=== PATIENT | female | born 1990 | race Caucasian/White ===

== ENCOUNTER → 2023-12-02 10:45 | Outpatient (REF) | payer BC, SELFPAY | LOC: RAD 10:45 | PROVIDERS: ATTENDING PHYSICIAN Obstetrics & Gynecology; FAMILY PHYSICIAN Internal Medicine | DX: Z31.41 Encounter for fertility testing (principal) | CPT/HCPCS: 58340; 74740 ==

== ENCOUNTER 2025-05-24 15:33 | Emergency (ER) | payer BC, SELFPAY ==
[2025-05-24] VITALS (13 sets, daily range): BP systolic 95–127; BP diastolic 63–81; BMI 20.5
[2025-05-24 16:01] LABS: Hematocrit 35.2 % (37.0-47.0); Hemoglobin 11.8 g/dL (12.0-16.0); Mean Corp Hgb Conc. 33.5 g/dL (33.0-37.0); Mean Corpuscular Volume 84.0 fL (81.0-99.0); Nucleated Red Blood Cells % 0 %; Platelet Count 225 10^3/uL (130-400); Red Cell Dist. Width 12.5 % (11.5-14.5)
[2025-05-24 16:17] LABS: ALT (SGPT) 14 U/L (0-35); AST (SGOT) 19 U/L (14-36); Albumin 4.3 g/dl (3.5-5.0); Alkaline Phosphatase 72 U/L (38-126); Blood Urea Nitrogen 8 mg/dl (7-17); Calcium 8.7 mg/dl (8.4-10.2); Carbon Dioxide 25 mmol/L (22-30); Chloride 107 mmol/L (98-107); Glucose 127 mg/dl (70-99); Potassium 3.6 mmol/L (3.5-5.1); Sodium 137 mmol/L (135-145); Total Protein 6.7 g/dl (6.3-8.2); eGFR > 60.00
[2025-05-24] MEDS: MORPHINE SULFATE 4 MG IV (16:36)
[2025-05-24] MEDS: NSS 1000 IV (16:37)
[2025-05-24] MEDS: TRANEXAMIC ACID 100 IV ×2 (16:39→21:09)
--- NOTE | 2025-05-24 16:52 | ED.GENMED ---
History of Present Illness
<Latrell Jane PA-C - Last Filed: 05/26/25 06:25>
General
Chief Complaint: Vaginal Bleeding
Time Seen by Provider: 05/24/25 16:02
History of Present Illness
History of Present Illness:
34-year-old female, , presents to the emergency department for evaluation heavy vaginal bleeding. She is approximately 5 weeks status post delivery at [facility], due to breech positioning. Review of
records on the patient's phone via c-crowd there did not appear to be any complications. She has had consistent bleeding since delivery, estimates 1 pad per 24 hours however over the past day the bleeding increased and today she had
increased abdominal cramping and heavy vaginal bleeding. For the past 30 minutes to 1 hour she has had pooling of blood in her underwear. Denies any dizziness or lightheadedness. She is not on anticoagulants or antiplatelets.
Past History
<Latrell Jane PA-C - Last Filed: 05/26/25 06:25>
Past History
ED Past Medical History: None
ED Past Surgical History: None
Review of Systems
<Latrell Jane PA-C - Last Filed: 05/26/25 06:25>
Review of Systems
Allergies reviewed?: Yes
All Other Systems: ROS reviewed and negative except as documented in HPI and ROS
Phy Exam
<Latrell Jane PA-C - Last Filed: 05/26/25 06:25>
Physical Exam
Physical Exam:
GEN: Well appearing, NAD, WDWN
HEENT: Oral mucosa moist, no scleral icterus
Cardiac: Mildly tachycardic, occasional irregularity
Lung: No respiratory distress, no tachypnea
Abdomen: Soft, no rigidity
: Brisk vaginal bleeding with copious clots, blood fills vaginal vault rapidly after clearing
MSK: No gross deformity or injuries
Skin: Good color, no pallor or jaundice, no rashes
Neuro: AO x3, moves all extremities freely
Psych: Calm, cooperative
Course
<Latrell Jane PA-C - Last Filed: 05/26/25 06:25>
Orders/Labs/Results
Orders:
Orders
05/24/25 15:49
Type+Screen Urgent
Complete Blood Count/With Diff Urgent
Comprehensive Metabolic Panel Urgent
05/24/25 16:16
US Pelvis Only (non-obstetric) Urgent
Comment:
Reason For Exam: vaginal hemorrhage post
05/24/25 16:27
Morphine Sulfate 4 mg IV NOW STA
05/24/25 16:30
0.9% Sodium Chloride 1000 ml [Nss] 1,000 ml IV BOLUS
05/24/25 16:36
ABO2 Urgent
BBK Wristband Number:
Associate notified that ABO2 has been ordered: [id number]
Date: 05/24/25
Time: 16:28
Hearing Specialist ID: [id number]
Tranexamic Acid 1000 mg/100 ml [Tranexamic Acid] 1,000 mg in 100 ml IV ONCE
05/24/25 17:57
Consult TYRE RETREADER [TYRE RETREADER CONSULT] Urgent
Consulting Provider: Mary Ellen Pollock
Was physician already notified: Yes
05/24/25 19:01
Pathology LDRP [LDRP Pathology] Routine
Date Specimen was Collected: 05/24/25
Pre-Operative Diagnosis: retained products of conception
Operative Procedure: removal of products
Clinical History: 5 wk post hemorrhage
Gestational Age: n/a
Tissue Submitted: Placenta
05/24/25 20:43
LDRP Pathology Routine
Date Specimen was Collected: 05/24/25
Pre-Operative Diagnosis: primary cs breech
Operative Procedure: primary cs breech
Clinical History: vaginal bleeding, s/p primary cs for breech 5 weeks ago, spontaneous passag
Gestational Age: of tissue
Tissue Submitted: Placenta
05/24/25 21:03
Tranexamic Acid 1000 mg/100 ml [Tranexamic Acid] 1,000 mg in 100 ml IV ONCE
Abnormal Lab Results
05/24/25
15:49
RBC 4.19 L 10^6/uL
(4.20-5.40)
Hgb 11.8 L g/dL
(12.0-16.0)
Hct 35.2 L %
(37.0-47.0)
Absolute Neuts (auto) 7.1 H 10^3/uL
(1.4-6.5)
Absolute Lymphs (auto) 0.9 L 10^3/uL
(1.2-3.4)
Neutrophils % 84.7 H %
(42.2-75.2)
Lymphocytes % 10.3 L %
(20.5-51.1)
Glucose 127 H mg/dl
(70-99)
Total Bilirubin 2.0 H mg/dl
(0.2-1.3)
05/24/25 15:49
05/24/25 15:49
Vital Signs
Initial and Last Documented VS:
Initial Vital Signs
Temp Pulse Resp BP Pulse Ox
98.1 F 97 17 105/75 99
05/24/25 15:40 05/24/25 15:40 05/24/25 15:40 05/24/25 15:40 05/24/25 15:40
Last Documented Vital Signs
Temp Pulse Resp BP Pulse Ox
98.5 F 71 20 106/69 99
05/24/25 16:00 05/24/25 21:15 05/24/25 19:00 05/24/25 21:00 05/24/25 21:15
<Tereso Esqueda MD - Last Filed: 05/24/25 21:10>
Orders/Labs/Results
Orders:
Orders
05/24/25 15:49
Type+Screen Urgent
Complete Blood Count/With Diff Urgent
Comprehensive Metabolic Panel Urgent
05/24/25 16:16
US Pelvis Only (non-obstetric) Urgent
Comment:
Reason For Exam: vaginal hemorrhage post
05/24/25 16:27
Morphine Sulfate 4 mg IV NOW STA
05/24/25 16:30
0.9% Sodium Chloride 1000 ml [Nss] 1,000 ml IV BOLUS
05/24/25 16:36
ABO2 Urgent
BBK Wristband Number:
Associate notified that ABO2 has been ordered: [id number]
Date: 05/24/25
Time: 16:28
Hearing Specialist ID: [id number]
Tranexamic Acid 1000 mg/100 ml [Tranexamic Acid] 1,000 mg in 100 ml IV ONCE
05/24/25 17:57
Consult TYRE RETREADER [TYRE RETREADER CONSULT] Urgent
Consulting Provider: Mary Ellen Pollock
Was physician already notified: Yes
05/24/25 19:01
Pathology LDRP [LDRP Pathology] Routine
Date Specimen was Collected: 05/24/25
Pre-Operative Diagnosis: retained products of conception
Operative Procedure: removal of products
Clinical History: 5 wk post hemorrhage
Gestational Age: n/a
Tissue Submitted: Placenta
05/24/25 20:43
LDRP Pathology Routine
Date Specimen was Collected: 05/24/25
Pre-Operative Diagnosis: primary cs breech
Operative Procedure: primary cs breech
Clinical History: vaginal bleeding, s/p primary cs for breech 5 weeks ago, spontaneous passag
Gestational Age: of tissue
Tissue Submitted: Placenta
05/24/25 21:03
Tranexamic Acid 1000 mg/100 ml [Tranexamic Acid] 1,000 mg in 100 ml IV ONCE
Abnormal Lab Results
05/24/25
15:49
RBC 4.19 L 10^6/uL
(4.20-5.40)
Hgb 11.8 L g/dL
(12.0-16.0)
Hct 35.2 L %
(37.0-47.0)
Absolute Neuts (auto) 7.1 H 10^3/uL
(1.4-6.5)
Absolute Lymphs (auto) 0.9 L 10^3/uL
(1.2-3.4)
Neutrophils % 84.7 H %
(42.2-75.2)
Lymphocytes % 10.3 L %
(20.5-51.1)
Glucose 127 H mg/dl
(70-99)
Total Bilirubin 2.0 H mg/dl
(0.2-1.3)
05/24/25 15:49
05/24/25 15:49
Vital Signs
Initial and Last Documented VS:
Initial Vital Signs
Temp Pulse Resp BP Pulse Ox
98.1 F 97 17 105/75 99
05/24/25 15:40 05/24/25 15:40 05/24/25 15:40 05/24/25 15:40 05/24/25 15:40
Last Documented Vital Signs
Temp Pulse Resp BP Pulse Ox
98.5 F 71 20 106/69 99
05/24/25 16:00 05/24/25 21:15 05/24/25 19:00 05/24/25 21:00 05/24/25 21:15
<Latrell Jane PA-C - Last Filed: 05/26/25 06:25>
*Pulse Oximetry
SaO2: 100
Oxygen Mode of Delivery: Room air
Patient hypoxic: no
*Critical Care Note
Total Time (30-74mins, 75-104mins- exclusive of procedures): Not Applicable
<Latrell Jane PA-C - Last Filed: 05/26/25 06:25>
Update Note
Update Note:
1845: OB evaluated the patient at the bedside and was able to remove a portion of placenta which will be then sent for pathology. The vagina was repacked OB will reassess the patient in the ER later this evening
ED Attending Note
<Latrell Jane PA-C - Last Filed: 05/26/25 06:25>
-
Portions of this chart may have been created with voice recognition software.� Occasional wrong word or��sound alike� substitutions may have occurred due to the inherent limitations of voice recognition software.
<Tereso Esqueda MD - Last Filed: 05/24/25 21:10>
ED Attending Note
I performed the substantive portion of visit, reviewed & personally made and approve the management plan that is documented in note by myself or SHANTEL.: Yes
ED Attending Note:
I have seen and evaluated the patient with a [id number] encounter. I have spoken to the advance practicer provider and involved in the medical history, the physical exam, medical decision making.
Evaluation and management service: agree unless noted differently below.
Results interpretation: agree unless noted differently below.
Focused HPI: 34-year-old female presented with vaginal bleeding 5 weeks status post delivery at [facility].
Physical exam: Awake alert no distress. Heavy bleeding initially, no blood noted on most recent pad removed after my assessment.
Medical Decision Makin-year-old female 5 weeks status post at [facility] presents with vaginal bleeding. Concerning for retained products/placenta. Seen by TYRE RETREADER, treated with TXA and placenta removed and sent for pathology.
Awaiting MENTAL RETARDATION NURSE reassessment.
MENTAL RETARDATION NURSE reassessed patient, bleeding greatly improved. Recommended additional dose of TXA and prescription written for home. Recommend discharge and patient can follow-up as an outpatient. Patient comfortable with this plan. All questions answered
Discharge Plan
Departure
Patient Disposition: Home (Routine Discharge)
Date of Disposition: 05/24/25
Time of Disposition: 21:04
Patient with high blood pressure during this ER visit?: No
Discharge Problem:
Retained products of conception, Vaginal bleeding, abnormal
Instructions: Heavy Periods (DC)
Prescriptions:
No Action
No Current Medications
0
Referrals:
Fly,Johanne, DO [Family Provider, Internal Medicine]
Interventions
Interventions:
*Risk Screen - Suicide Last Done: 05/24/25 15:43
*General Assessment Last Done: 05/24/25 15:43
*Neglect/Abuse Screening Last Done: 05/24/25 15:43
*ED- Fall Risk Assessment Last Done: 05/24/25 16:00
*ED COVID-19 Vaccine History Last Done: 05/24/25 15:43
*Nursing Disposition Last Done: 05/24/25 21:37
ED-Female Genitourinary Assessment Last Done: 05/24/25 16:00
Discharge Date and Time
Discharge Date/Time: 05/24/25 21:37
Print Language: HUNGARIAN
== END 2025-05-24 21:37 | disposition home or self-care (01) ==
LOC: EMR 15:33
PROVIDERS: CONSULT PHYSICIAN Obstetrics & Gynecology; EMERGENCY PHYSICIAN Emergency Medicine; FAMILY PHYSICIAN Internal Medicine
DX: O72.2 Delayed and secondary postpartum hemorrhage (principal); R10.9 Unspecified abdominal pain; R30.0 Dysuria
CPT/HCPCS: 99284; 96374; 96375; 96361; 96376; 76856; 80053; 85025; 86850; 86900; 86901; 88305

== ENCOUNTER 2025-05-26 21:11 | Day surgery (SDC) | payer BC, SELFPAY ==
[2025-05-26] VITALS (15 sets, daily range): BP systolic 102–126; BP diastolic 57–79; BMI 21.6
[2025-05-26 15:43] LABS: Hematocrit 30.4 % (37.0-47.0); Hemoglobin 10.1 g/dL (12.0-16.0); Mean Corp Hgb Conc. 33.2 g/dL (33.0-37.0); Mean Corpuscular Volume 83.1 fL (81.0-99.0); Nucleated Red Blood Cells % 0 %; Platelet Count 228 10^3/uL (130-400); Red Cell Dist. Width 12.4 % (11.5-14.5)
[2025-05-26 15:44] LABS: Urine Character Slightly Cloudy (Clear)
[2025-05-26 15:47] LABS: HCG, Urine Qualitative Screen Negative
[2025-05-26 15:58] LABS: ALT (SGPT) 14 U/L (0-35); AST (SGOT) 18 U/L (14-36); Albumin 3.8 g/dl (3.5-5.0); Alkaline Phosphatase 56 U/L (38-126); Blood Urea Nitrogen 8 mg/dl (7-17); Calcium 8.8 mg/dl (8.4-10.2); Carbon Dioxide 27 mmol/L (22-30); Chloride 108 mmol/L (98-107); Glucose 105 mg/dl (70-99); Potassium 4.0 mmol/L (3.5-5.1); Sodium 138 mmol/L (135-145); Total Protein 6.1 g/dl (6.3-8.2); eGFR > 60.00
[2025-05-26 16:09] LABS: Urine Squamous Cell 16-20 /LPF (Few)
[2025-05-26 16:10] LABS: Urine Red Blood Cell >100 /HPF (0-2); Urine White Cell 60-70 /HPF (0-5)
--- NOTE | 2025-05-26 16:29 | ED.GENMED ---
History of Present Illness
<Talya Willson PA-C - Last Filed: 05/27/25 00:37>
General
Chief Complaint: Vaginal Bleeding
Source: patient
Exam Limitations: none
Time Seen by Provider: 05/26/25 14:56
Nursing documentation reviewed up to this point in time: agreed with
History of Present Illness
History of Present Illness:
Patient is a 34-year-old approximately 5 weeks s/p who presents to the emergency department with vaginal bleeding. Patient had uncomplicated performed at [facility] approximately 5 weeks ago and reports somewhat steady
bleeding since. She initially was going throughout 1 pad every 24 hours however 2 days ago bleeding seem to increase significantly. She was seen in the emergency department 05/24/2025 with heavy vaginal bleeding and lower abdominal cramping.
Ultrasound revealed findings concerning for retained placenta. Patient was seen by our TRAFFIC MAINTENANCE SUPERVISOR in consult where retained products were removed and bleeding seemed improved at that time. There was discussion had regarding TXA versus D&C however
patient preferred discharge home with TXA.
Patient states yesterday bleeding seemed improved however today she passed 2 large 'golf ball sized clots' and given persistent bleeding�she returned to the emergency department. She denies chest pain, shortness of breath, palpitations,
lightheadedness or dizziness.
Her primary TRAFFIC MAINTENANCE SUPERVISOR is Rob at [facility]
Past History
<Talya Willson PA-C - Last Filed: 05/27/25 00:37>
Past History
ED Past Medical History: None
ED Past Surgical History: None
Review of Systems
<Talya Willson PA-C - Last Filed: 05/27/25 00:37>
Review of Systems
Allergies reviewed?: Yes
All Other Systems: ROS reviewed and negative except as documented in HPI and ROS
Phy Exam
<Talya Willson PA-C - Last Filed: 05/27/25 00:37>
Physical Exam
Physical Exam:
Vitals: Patient's vital signs are stable. Afebrile
General: Patient is well appearing, no acute distress. Nontoxic appearing
Skin: Warm and dry, no rashes or lesions
Head: Normocephalic, atraumatic
Eyes: Sclera nonicteric.
Throat: Protecting airway
Neck: Normal ROM, no cervical spine tenderness, no meningismus
Cardiac: Regular rate, irregular rhythm, no murmurs.
Pulm: Normal respiratory effort, no wheezes, rales, rhonchi heard on exam
Abdomen: Abdomen soft and nontender.
Pelvic: Pooling blood in vaginal vault with small clots
Extremities: No evidence of cyanosis or edema
Neuro: AAOx3. Grossly intact.
Psychiatric: Normal affect.
Course
<Talya Willson PA-C - Last Filed: 05/27/25 00:37>
Orders/Labs/Results
Orders:
Orders
05/26/25 Dinner
NPO
Allow oral meds: Yes
Allow clear liquids: 4hrs prior to procedure
Comment: may have unrestricted clear liquid up to 4 hrs prior to scheduled procedure
05/26/25 15:20
Test Result ONCE
05/26/25 15:28
Complete Blood Count/With Diff Urgent
Comprehensive Metabolic Panel Urgent
HCG, Urine Qualitative Screen Urgent
Date Specimen was Collected: 05/26/25
Time Specimen was Collected: 15:19
Urinalysis Reflex To Culture Urgent
Date Specimen was Collected: 05/26/25
Time Specimen was Collected: 15:19
Urine Microscopic Reflex Cult Urgent
Urine Culture Urgent
KIM Source: U
Specimen Description:
Date Specimen was Collected: 05/26/25
Time Specimen was Collected: 15:19
05/26/25 15:56
Electrocardiogram (*1) Urgent
Reason for Study: Hypertension, Benign
EKG- Treatment ONCE
05/26/25 17:06
Consult TRAFFIC MAINTENANCE SUPERVISOR [TRAFFIC MAINTENANCE SUPERVISOR CONSULT] Urgent
Consulting Provider: Los Hurley
Was physician already notified: Yes
0.9% Sodium Chloride 1000 ml [Nss] 1,000 ml IV BOLUS
Pelvis & Transvaginal US [US Pelvis W Transvag Combined] Urgent
Comment:
Reason For Exam: vaginal bleeding 5 weeks s/p
05/26/25 17:18
Type+Screen Urgent
BBK Wristband Number:
05/26/25 17:38
Acetaminophen [Tylenol] 650 mg PO NOW STA
05/26/25 20:21
Lidocaine 2% Mpf [Xylocaine Mpf 2%] 100 mg .ROUTE .STK-MED ONE
Midazolam HCl [Versed] 2 mg .ROUTE .STK-MED ONE
Ondansetron Injectable [Zofran] 4 mg .ROUTE .STK-MED ONE
Propofol [Diprivan] 20 ml .ROUTE .STK-MED
05/26/25 20:22
Fentanyl Citrate/Pf [Sublimaze] 100 mcg .ROUTE .STK-MED ONE
05/26/25 20:33
CeFAZolin 2 GRAM [Ancef] 2 grams in 10 ml IV PRE PROCEDURE
US Pelvis Only (non-obstetric) Urgent
Comment:
Reason For Exam: U/S guidnace for D&E
05/26/25 20:35
Activity As Directed
Activity Level: Bathroom Privileges
05/26/25 20:36
Foot pumps [Venous Foot Pumps] As Directed
Location: Bilateral feet
DX Deep Vein Thrombosis Video Routine
05/26/25 21:00
Lactated Ringers [Lr] 1,000 ml IV 125 mls/hr
05/26/25 22:04
OR Pathology Routine
Pre-Operative Diagnosis: retained products of conception
Post-Operative Diagnosis: retained products of conception
Operative Procedure: Dilation and Evacuation
Surgeon: Los Hurley
Circulating Nurse: Re Du
Specimen Type: Products of conception
05/26/25 22:07
CeFAZolin SODIUM [Ancef] 2,000 mg .ROUTE .STK-MED ONE
05/26/25 22:18
Oxytocin [Pitocin] 10 units .ROUTE .STK-MED ONE
Oxytocin [Pitocin] 10 units .ROUTE .STK-MED ONE
05/26/25 22:36
Fentanyl Citrate/Pf [Sublimaze] 25 mcg IV [id number] PRN
Fentanyl Citrate/Pf [Sublimaze] 25 mcg IV PACU-Q5MPRN PRN
Fentanyl Citrate/Pf [Sublimaze] 50 mcg IV PACU-Q5MPRN PRN
Ondansetron Injectable [Zofran] 4 mg IV PACU-ONCEPRN PRN
Prochlorperazine [Compazine] 5 mg IV PACU-ONCEPRN PRN
Notify MD As Directed
Notify physician if: for SDS patients with known or suspected sleep obstructive sleep apnea, monitor in the
PACU.
Notify MD for any apneic/desaturation episodes
O2 Therapy [RESP] Urgent
Titrate/Wean O2 to maintain O2 sat greater than (%): 92
Special Instructions: -Provide supplemental oxygen to achieve O2 sat of 92% or greater.
-After 15 min, may wean O2 and discontinue if patient is able to maintain O2 sat of 92%
or greater during recovery period.
If patient is a discharge home, without oxygen therapy, notify anestheiologist if
unable to maintain O2 SAT of 92% or greater on room air for MD clearance.
05/26/25 22:37
Ketorolac [Toradol] 30 mg .ROUTE .STK-MED ONE
05/26/25 22:45
Normosol (Mult Electrolytes) [Normosol-R/Plasmalyte-A] 1,000 ml IV PER PROTOCOL
05/26/25 23:00
Normosol (Mult Electrolytes) [Normosol-R/Plasmalyte-A] 1,000 ml IV SDS-ONCE
Ondansetron Injectable [Zofran] 4 mg IV SDS-ONCEPRN PRN
Abnormal Lab Results
05/26/25
15:28
RBC 3.66 L 10^6/uL
(4.20-5.40)
Hgb 10.1 L g/dL
(12.0-16.0)
Hct 30.4 L %
(37.0-47.0)
Absolute Lymphs (auto) 0.8 L 10^3/uL
(1.2-3.4)
Neutrophils % 76.2 H %
(42.2-75.2)
Lymphocytes % 15.5 L %
(20.5-51.1)
Chloride 108 H mmol/L
(98-107)
Glucose 105 H mg/dl
(70-99)
Total Protein 6.1 L g/dl
(6.3-8.2)
Ur Occult Blood Reflex 4+ A
(Negative)
Leukocyte Esterase Rfl 3+ A
(Negative)
Urine RBC >100 A /HPF
(0-2)
Urine WBC (Reflex) 60-70 A /HPF
(0-5)
Urine Bacteria (Reflex) Moderate A
(Negative)
Urine Albumin (Reflex) 2+ A
(Neg - Trace)
05/26/25 15:28
05/26/25 15:28
Vital Signs
Initial and Last Documented VS:
Initial Vital Signs
Temp Pulse Resp BP Pulse Ox
98.2 F 79 16 118/65 100
05/26/25 14:34 05/26/25 14:34 05/26/25 14:34 05/26/25 14:34 05/26/25 14:34
Last Documented Vital Signs
Temp Pulse Resp BP Pulse Ox
97.3 F 74 14 117/77 100
05/26/25 23:36 05/26/25 23:36 05/26/25 23:36 05/26/25 23:36 05/26/25 23:31
<Natalio Hsu PA-C - Last Filed: 05/26/25 20:28>
Orders/Labs/Results
Orders:
Orders
05/26/25 Dinner
NPO
Allow oral meds: Yes
Allow clear liquids: 4hrs prior to procedure
Comment: may have unrestricted clear liquid up to 4 hrs prior to scheduled procedure
05/26/25 15:20
Test Result ONCE
05/26/25 15:28
Complete Blood Count/With Diff Urgent
Comprehensive Metabolic Panel Urgent
HCG, Urine Qualitative Screen Urgent
Date Specimen was Collected: 05/26/25
Time Specimen was Collected: 15:19
Urinalysis Reflex To Culture Urgent
Date Specimen was Collected: 05/26/25
Time Specimen was Collected: 15:19
Urine Microscopic Reflex Cult Urgent
Urine Culture Urgent
KIM Source: U
Specimen Description:
Date Specimen was Collected: 05/26/25
Time Specimen was Collected: 15:19
05/26/25 15:56
Electrocardiogram (*1) Urgent
Reason for Study: Hypertension, Benign
EKG- Treatment ONCE
05/26/25 17:06
Consult TRAFFIC MAINTENANCE SUPERVISOR [TRAFFIC MAINTENANCE SUPERVISOR CONSULT] Urgent
Consulting Provider: Los Hurley
Was physician already notified: Yes
0.9% Sodium Chloride 1000 ml [Nss] 1,000 ml IV BOLUS
Pelvis & Transvaginal US [US Pelvis W Transvag Combined] Urgent
Comment:
Reason For Exam: vaginal bleeding 5 weeks s/p
05/26/25 17:18
Type+Screen Urgent
BBK Wristband Number:
05/26/25 17:38
Acetaminophen [Tylenol] 650 mg PO NOW STA
05/26/25 20:21
Lidocaine 2% Mpf [Xylocaine Mpf 2%] 100 mg .ROUTE .STK-MED ONE
Midazolam HCl [Versed] 2 mg .ROUTE .STK-MED ONE
Ondansetron Injectable [Zofran] 4 mg .ROUTE .STK-MED ONE
Propofol [Diprivan] 20 ml .ROUTE .STK-MED
05/26/25 20:22
Fentanyl Citrate/Pf [Sublimaze] 100 mcg .ROUTE .STK-MED ONE
05/26/25 20:33
CeFAZolin 2 GRAM [Ancef] 2 grams in 10 ml IV PRE PROCEDURE
US Pelvis Only (non-obstetric) Urgent
Comment:
Reason For Exam: U/S guidnace for D&E
05/26/25 20:35
Activity As Directed
Activity Level: Bathroom Privileges
05/26/25 20:36
Foot pumps [Venous Foot Pumps] As Directed
Location: Bilateral feet
DX Deep Vein Thrombosis Video Routine
05/26/25 21:00
Lactated Ringers [Lr] 1,000 ml IV 125 mls/hr
05/26/25 22:04
OR Pathology Routine
Pre-Operative Diagnosis: retained products of conception
Post-Operative Diagnosis: retained products of conception
Operative Procedure: Dilation and Evacuation
Surgeon: Los Hurley
Circulating Nurse: Re Du
Specimen Type: Products of conception
05/26/25 22:07
CeFAZolin SODIUM [Ancef] 2,000 mg .ROUTE .STK-MED ONE
05/26/25 22:18
Oxytocin [Pitocin] 10 units .ROUTE .STK-MED ONE
Oxytocin [Pitocin] 10 units .ROUTE .STK-MED ONE
05/26/25 22:36
Fentanyl Citrate/Pf [Sublimaze] 25 mcg IV [id number] PRN
Fentanyl Citrate/Pf [Sublimaze] 25 mcg IV PACU-Q5MPRN PRN
Fentanyl Citrate/Pf [Sublimaze] 50 mcg IV PACU-Q5MPRN PRN
Ondansetron Injectable [Zofran] 4 mg IV PACU-ONCEPRN PRN
Prochlorperazine [Compazine] 5 mg IV PACU-ONCEPRN PRN
Notify MD As Directed
Notify physician if: for SDS patients with known or suspected sleep obstructive sleep apnea, monitor in the
PACU.
Notify MD for any apneic/desaturation episodes
O2 Therapy [RESP] Urgent
Titrate/Wean O2 to maintain O2 sat greater than (%): 92
Special Instructions: -Provide supplemental oxygen to achieve O2 sat of 92% or greater.
-After 15 min, may wean O2 and discontinue if patient is able to maintain O2 sat of 92%
or greater during recovery period.
If patient is a discharge home, without oxygen therapy, notify anestheiologist if
unable to maintain O2 SAT of 92% or greater on room air for MD clearance.
05/26/25 22:37
Ketorolac [Toradol] 30 mg .ROUTE .STK-MED ONE
05/26/25 22:45
Normosol (Mult Electrolytes) [Normosol-R/Plasmalyte-A] 1,000 ml IV PER PROTOCOL
05/26/25 23:00
Normosol (Mult Electrolytes) [Normosol-R/Plasmalyte-A] 1,000 ml IV SDS-ONCE
Ondansetron Injectable [Zofran] 4 mg IV SDS-ONCEPRN PRN
Abnormal Lab Results
05/26/25
15:28
RBC 3.66 L 10^6/uL
(4.20-5.40)
Hgb 10.1 L g/dL
(12.0-16.0)
Hct 30.4 L %
(37.0-47.0)
Absolute Lymphs (auto) 0.8 L 10^3/uL
(1.2-3.4)
Neutrophils % 76.2 H %
(42.2-75.2)
Lymphocytes % 15.5 L %
(20.5-51.1)
Chloride 108 H mmol/L
(98-107)
Glucose 105 H mg/dl
(70-99)
Total Protein 6.1 L g/dl
(6.3-8.2)
Ur Occult Blood Reflex 4+ A
(Negative)
Leukocyte Esterase Rfl 3+ A
(Negative)
Urine RBC >100 A /HPF
(0-2)
Urine WBC (Reflex) 60-70 A /HPF
(0-5)
Urine Bacteria (Reflex) Moderate A
(Negative)
Urine Albumin (Reflex) 2+ A
(Neg - Trace)
05/26/25 15:28
05/26/25 15:28
Vital Signs
Initial and Last Documented VS:
Initial Vital Signs
Temp Pulse Resp BP Pulse Ox
98.2 F 79 16 118/65 100
05/26/25 14:34 05/26/25 14:34 05/26/25 14:34 05/26/25 14:34 05/26/25 14:34
Last Documented Vital Signs
Temp Pulse Resp BP Pulse Ox
97.3 F 74 14 117/77 100
05/26/25 23:36 05/26/25 23:36 05/26/25 23:36 05/26/25 23:36 05/26/25 23:31
<ANDRÉS Alberto Last Filed: 05/27/25 00:37>
MDM/Problems Addressed
Differential Diagnosis Includes:
Not limited to: Retained placenta, menstrual bleeding, uterine fibroids, anemia, etc.
MDM/Problems Addressed:
34y.o female approximately 5 weeks s/p presenting with persistent vaginal bleeding and passage of clots. Patient seen in our ED two days ago with findings of retained placenta on exam and removal attempted by TRAFFIC MAINTENANCE SUPERVISOR. Patient
discharged home with TXA however bleeding/clots returned today. Patient denies any shortness of breath, lightheadedness, dizziness, or abdominal pain. Patient�s primary TRAFFIC MAINTENANCE SUPERVISOR is with [facility].
Patient hemodynamically stable on arrival. Labs were sent prior to my evaluation significant for anemia w/ hemoglobin of 10.1 which is decreased from 11.8 two days ago.
On exam � patient well appearing, in no distress. Abdomen soft and nontender. Pelvic exam does reveal bleeding which is pooling in vaginal vault alogn with small clots.
Concern for remaining products of conception, placenta. While patient remains hemodynamically stable � she is failing outpatient TXA and at this point will likely require D&E. Lengthy discussion with both our TRAFFIC MAINTENANCE SUPERVISOR and patients primary TRAFFIC MAINTENANCE SUPERVISOR.
Ultimately � decision was made to likely pursue D&E. Given active bleeding - transfer not appropriate. Will check pelvic ultrasound, give IV fluids. Consult placed for TRAFFIC MAINTENANCE SUPERVISOR who will come evaluate patient bedside.
In addition� patient was found to have an arrhythmia on cardiac monitoring. EKG performed and reviewed with attending physician who feels most consistent with likely sinus arrhythmia. Patient asymptomatic and do feel this is an incidenta finding and
unrelated to presenting symptoms. Advised to follow up outpatient with cardiology.
Case was signed out to Frandy Hsu pa-c pending pelvic ultrasound and TRAFFIC MAINTENANCE SUPERVISOR consult. Likely plan for OR tonight.
Chronic conditions affecting care:
Recent with retained placenta
Acute Exacerbation and/or Progression of Chronic Illness:
Acute hemorrhage secondary to retained placenta
<Talya Willson PA-C - Last Filed: 05/27/25 00:37>
*Radiology
Radiology exam reviewed: radiology read reviewed
*Pulse Oximetry
SaO2: 98
Oxygen Mode of Delivery: Room air
Patient hypoxic: no
*EKG
Interpreted by ED Provider?: Yes
EKG Intrepretation Date: 05/26/25
Interpretation: abnormal
Comparison EKG: no comparison EKG present
Heart Rate: 67
Rate: normal
Rhythm: sinus arrhythmia
Odell: normal axis
Interval: normal QT interval
QRS Pattern: normal QRS
Ischemia: no ischemia
*Art Appraiser Interpretation
Rate: normal
Interpretation: abnormal
<Natalio sHu PA-C - Last Filed: 05/26/25 20:28>
*Critical Care Note
Total Time (30-74mins, 75-104mins- exclusive of procedures): Not Applicable
<Talya Willson PA-C - Last Filed: 05/27/25 00:37>
Patient Management
Discussion with other providers: Operational Assistant (Case discussed with OBGYN)
<Natalio Hsu PA-C - Last Filed: 05/26/25 20:28>
Update Note
Update Note:
Assumed care of patient pending pelvic ultrasound and TRAFFIC MAINTENANCE SUPERVISOR evaluation. Ultrasound was reviewed and demonstrates likely retained products of conception. TRAFFIC MAINTENANCE SUPERVISOR into see patient and will take patient to the OR for D&C.
ED Attending Note
<Talya Willson PA-C - Last Filed: 05/27/25 00:37>
-
Portions of this chart may have been created with voice recognition software.� Occasional wrong word or��sound alike� substitutions may have occurred due to the inherent limitations of voice recognition software.
Discharge Plan
Departure
Patient Disposition: Admit
Date of Disposition: 05/26/25
Time of Disposition: 20:27
Presentation/result/management discussed w/ accepting MD/DO: Xavi
Discharge Problem:
Vaginal bleeding
Interventions
Interventions:
*Risk Screen - Suicide Last Done: 05/26/25 14:34
*General Assessment Last Done: 05/26/25 14:34
*Neglect/Abuse Screening Last Done: 05/26/25 14:34
*ED- Fall Risk Assessment Last Done: 05/26/25 15:40
*Nursing Disposition Last Done: 05/26/25 21:11
ED-Female Genitourinary Assessment Last Done: 05/26/25 15:40
Discharge Date and Time
Discharge Date/Time: 05/26/25 21:11
[2025-05-26] MEDS: NSS 1000 IV (17:16)
[2025-05-26] MEDS: TYLENOL 650 MG PO (17:50)
--- NOTE | 2025-05-26 20:05 | HP.FOC2 ---
Focused History & Physical
Chief Complaint
HPI:
Chief Complaint: 34 y/o S/P P LTCS for breech at [facility] 5 1/2 weeks ago who presents with heavy bleeding, clots and lower abdominal cramping. Pt seen in ED 2 days ago for same concern, at that time on exam, piece of retained placenta was
found in vagina and cervix, removed and bleeding improved. At that time, patient declined D&E. Pt today began to experience heavier bleeding and large clots and returned to ED. Did not contact her BUCK SWAMPER. Denies dizziness.
Ultrasound performed this evening shows an 11 cm uterus with endometrial evidence of probable retained products of conception.
Has recently started Macrobid for cystitis
HPI / Indication for Planned Procedure:
Relevant Past Medical History: Negative
Relevant Social History: Negative
Relevant Family History: Negative
Relevant Past Surgical History: Negative
Review of Systems
Review of Pertinent Systems: All Systems Negative
Medication
See Medication form for detailed medications: Yes
Medication List (including Herbals & OTC):
vitamin daily, Iron daily, Macrobid 100 mg bid
Medications Reviewed: Yes
Allergies and Reactions
Patient has Allergies: No
Noted Allergies and Reactions:
Allergy/AdvReac Type Severity Reaction Status Date / Time
No Known Allergies Allergy Unverified 05/24/25 15:41
Pertinent Physical Exam
All Other Systems: Negative
Head/Neck: Normal
Lungs: Normal
Heart: Normal
Abdomen: Normal and Other (Vulva and vagina are clear, little blood. No cervical motion tenderness, some membrane-type tissue noted. Uterus normal size, nontender. Adnexae nontender, normal)
Extremities: Normal
Neurological: Normal
Diagnosis / Assessment
hemorrhage likely related to retained products of conception
Plan / Procedure
Reviewed with patient recommendation to proceed with dilation and evacuation with suction, that unlikely the uterus would evacuate on its own. Patient agrees. Reviewed risks including bleeding, infection, internal organ injury, need for additional
surgery and/or hospitalizations.
Admit, IV, Ancef 2 g salon stylist to oOR. Proceed with D&E with suction with U/S guidance.
Anesthesia/Sedation to be done by Anesthesia Provider: Yes
== END 2025-05-26 23:37 | disposition home or self-care (01) ==
LOC: SDS 21:11
PROVIDERS: Physician Assistant; ATTENDING PHYSICIAN Obstetrics & Gynecology; EMERGENCY PHYSICIAN Student in an Organized Health Care Education/Training Program; FAMILY PHYSICIAN Internal Medicine
DX: O72.2 Delayed and secondary postpartum hemorrhage (principal); N85.00 Endometrial hyperplasia, unspecified
CPT/HCPCS: 59160; 76830; 76856; 80053; 81003; 81015; 81025; 85025; 86850; 86900; 86901; 87086; 88305; 93005; 99285